=== PATIENT | male | born 1995 | race Caucasian/White ===

== ENCOUNTER → 2016-12-07 | Emergency (ER) | payer SELFPAY ==
[~2016-12-07] MED LIST: CELEXA20 MG; GEODON40 MG; MAXALT MLT10 MG/TAB; MELATONIN5 M7 PO; NORCO 5/325 TAB1 TAB PO; PHENERGAN25 MG PO; TRAZODONE50 MG; ZITHROMAX250 M1 PO
== END ==
LOC: EDMED 05:21
DX: S90.31XA Contusion of right foot, initial encounter (principal); W22.8XXA Striking against or struck by other objects, initial encounter; Y92.39 Other specified sports and athletic area as the place of occurrence of the external cause